=== PATIENT | male | born 1950 | race Caucasian/White ===

== ENCOUNTER 2018-01-11 17:40 | Emergency (ER) | payer MEDICARE ==
[~2018-01-11] VITALS: Ht 175.3 cm; Wt 87.3 kg
[2018-01-11] MEDS ORDERED: LISINOPRIL10 M1 PO (18:16)
[2018-01-11 18:22] LABS: HEMATOCRIT 48.6 % (39.0-50.0); HEMOGLOBIN 16.6 g/dl (14.0-18.0); IMMATURE GRANULOCYTES 0.4 % (0.0-1.0); MEAN CELL VOLUME 95.7 fL CALC (80.0-100.0); MEAN CORPUSCULAR HGB 32.7 pG CALC (26.0-32.0); MEAN CORPUSCULAR HGB CONC 34.2 g/L CALC (32.0-36.0); RED BLOOD COUNT 5.08 mill/uL (4.70-6.10); RED CELL DISTRI WIDTH 14.2 % (11.5-15.5)
[2018-01-11 18:54] LABS: ANION GAP 15 (6-22 (CALC)); BUN 11 mg/dL (8-23); BUN/CREATININE RATIO 12 (12-20 (CALC)); CARBON DIOXIDE 27 mmol/l (22-30); CHLORIDE 104 mmol/l (95-108); CREATININE 0.9 mg/dL (0.7-1.3); GFR > 60 ML/MIN (>=60 (CALC)); GFR FOR AFR.AMER. > 60 ML/MIN (>=60 (CALC)); SODIUM 142 mmol/l (137-146)
[2018-01-11 20:04] VITALS: BP 162/86
== END 2018-01-11 20:03 | disposition home or self-care (01) ==
LOC: ED 17:40
PROVIDERS: Family Medicine
DX: I10 Essential (primary) hypertension (principal); E78.00 Pure hypercholesterolemia, unspecified; J44.9 Chronic obstructive pulmonary disease, unspecified; I71.4 Abdominal aortic aneurysm, without rupture; F17.210 Nicotine dependence, cigarettes, uncomplicated

== ENCOUNTER 2020-02-10 19:12 | Emergency (ER) | payer BC, MEDICARE ==
[~2020-02-10] VITALS: Ht 175.3 cm; Wt 79.1 kg
[~2020-02-10 19:12] MED LIST: LISINOPRIL10 M1 PO
[2020-02-10] MEDS ORDERED: ATENOLOL25 MG PO (20:29)
[2020-02-10] MEDS ORDERED: SIMVASTATIN40 MG PO (20:30)
[2020-02-10 20:50] VITALS: BP 169/97
== END 2020-02-10 20:50 | disposition home or self-care (01) | DRG 605 ==
LOC: ED 19:12
PROC: 0HQMXZZ Repair Right Foot Skin, External Approach (ICD-10-PCS; principal; 2020-02-10)
DX: S91.311A Laceration without foreign body, right foot, initial encounter (principal); I10 Essential (primary) hypertension; J44.9 Chronic obstructive pulmonary disease, unspecified; F17.210 Nicotine dependence, cigarettes, uncomplicated; W45.8XXA Other foreign body or object entering through skin, initial encounter

== ENCOUNTER 2022-08-17 18:41 | Observation (INO) | payer BC, MEDICARE ==
[2022-08-17] VITALS (8 sets, daily range): BP systolic 118–170; BP diastolic 52–76
[~2022-08-17] VITALS: Ht 175.3 cm; Wt 115.3 kg
[~2022-08-17 18:41] MED LIST changes: +ATENOLOL25 MG PO; +SIMVASTATIN40 MG PO
[2022-08-17 19:10] LABS: BASO% 0.4 % (0-3); EOS% 2.8 % (0-8); HEMATOCRIT 44.1 % (39.0-50.0); HEMOGLOBIN 14.6 g/dl (14.0-18.0); IMMATURE GRANULOCYTES 0.8 % (0.0-5.0); LYMPH% 16.5 % (15-41); MEAN CELL VOLUME 91.3 fL CALC (80.0-100.0); MEAN CORPUSCULAR HGB 30.2 pG CALC (26.0-32.0); MEAN CORPUSCULAR HGB CONC 33.1 g/dL CAL (32.0-36.0); MONO% 5.9 % (2-13); NEUT# 5.22 thou/uL (1.82-7.42); NEUT% 73.6 % (42-76); RED BLOOD COUNT 4.83 mill/uL (4.70-6.10); RED CELL DISTRI WIDTH 16.9 % (11.5-15.5)
[2022-08-17 19:26] LABS: ALBUMIN 4.3 g/dL (3.2-5.0); ALKALINE PHOSPHATASE 57 u/l (38-126); ANION GAP 9 (6-22 (CALC)); BILIRUBIN, TOTAL 0.2 mg/dL (0.0-1.4); BUN 22 mg/dL (8-23); BUN/CREATININE RATIO 17 (12-20 (CALC)); CARBON DIOXIDE 32 mmol/l (22-30); CHLORIDE 104 mmol/l (95-108); CPK 49 u/l (52-200); CREATININE 1.3 mg/dL (0.7-1.3); ETHYL ALCOHOL 0 mg/dl (0-30); GFR FOR AFR.AMER. > 60 ML/MIN (>=60 (CALC)); GFR OTHER RACES 54 ML/MIN (>=60 (CALC)); MAGNESIUM 2.1 mg/dL (1.6-2.3); POTASSIUM 4.1 mmol/l (3.5-5.1); SGOT/AST 28 u/l (19-48); SODIUM 141 mmol/l (137-146)
[2022-08-17 19:37] LABS: MYOGLOBIN 39 ng/mL (0 - 121)
[2022-08-17 19:39] LABS: URINE BLOOD DIPSTICK NEGATIVE (NEGATIVE); URINE COLOR YELLOW; URINE GLUCOSE - DIPSTICK NEGATIVE (NEGATIVE); URINE KETONE TRACE mg/dL (NEGATIVE); URINE LEUK ESTERASE NEGATIVE (NEGATIVE); URINE PH 5.5 (4.5-8.0); URINE PROTEIN - DIPSTICK NEGATIVE (NEG-TRACE); URINE SPECIFIC GRAVITY >=1.030; URINE UROBILINOGEN - DIPSTICK 0.2 E.U./dL (0.2)
[2022-08-17 19:44] LABS: URINE BILIRUBIN - DIPSTICK SMALL (NEGATIVE)
[2022-08-17 19:45] LABS: URINE NITRITE - DIPSTICK NEGATIVE (Negative)
[2022-08-17] MEDS ORDERED: ASPIRIN81 MG PO (20:49)
[2022-08-17] MEDS ORDERED: LIPITOR20 M1 PO (20:49)
[2022-08-17] MEDS ORDERED: XARELTO10 MG PO (20:50)
[2022-08-18] VITALS: BP 119/70
[2022-08-18 03:56] VITALS: BP 112/60
[2022-08-18 04:00] VITALS: BP 112/60
[2022-08-18 05:27] LABS: BASO% 0.7 % (0-3); EOS% 5.8 % (0-8); HEMATOCRIT 39.8 % (39.0-50.0); LYMPH% 28.7 % (15-41); MEAN CELL VOLUME 93.4 fL CALC (80.0-100.0); MEAN CORPUSCULAR HGB 30.5 pG CALC (26.0-32.0); MEAN CORPUSCULAR HGB CONC 32.7 g/dL CAL (32.0-36.0); MONO% 6.5 % (2-13); NEUT# 3.2 thou/uL (1.82-7.42); NEUT% 58.3 % (42-76); RED BLOOD COUNT 4.26 mill/uL (4.70-6.10); RED CELL DISTRI WIDTH 17.1 % (11.5-15.5)
[2022-08-18 05:44] LABS: ALKALINE PHOSPHATASE 53 u/l (38-126); ANION GAP 7 (6-22 (CALC)); BUN 18 mg/dL (8-23); BUN/CREATININE RATIO 19 (12-20 (CALC)); CARBON DIOXIDE 27 mmol/l (22-30); CHLORIDE 109 mmol/l (95-108); CREATININE 0.9 mg/dL (0.7-1.3); GFR FOR AFR.AMER. > 60 ML/MIN (>=60 (CALC)); GFR OTHER RACES > 60 ML/MIN (>=60 (CALC)); MAGNESIUM 2.1 mg/dL (1.6-2.3); POTASSIUM 4.2 mmol/l (3.5-5.1); SGOT/AST 21 u/l (19-48); SODIUM 139 mmol/l (137-146); TOTAL PROTEIN 5.7 g/dL (6.3-8.2)
[2022-08-18 05:46] LABS: ALBUMIN 3.4 g/dL (3.2-5.0)
[2022-08-18 06:46] VITALS: BP 112/65
== END 2022-08-18 10:35 | disposition home or self-care (01) | DRG 312 ==
LOC: ED 18:41 → ED-I 20:15 → ED 20:28 → MS2 20:29 → ED 20:29 → MS2 20:29
PROVIDERS: Family Medicine; ADMIT Internal Medicine; ATTEND Internal Medicine
DX: R55 Syncope and collapse (principal); I10 Essential (primary) hypertension; E78.00 Pure hypercholesterolemia, unspecified; F17.200 Nicotine dependence, unspecified, uncomplicated; I73.9 Peripheral vascular disease, unspecified; Z95.828 Presence of other vascular implants and grafts; Z86.79 Personal history of other diseases of the circulatory system; Z85.818 Personal history of malignant neoplasm of other sites of lip, oral cavity, and pharynx; Z92.3 Personal history of irradiation; Z92.21 Personal history of antineoplastic chemotherapy; Z20.822 Contact with and (suspected) exposure to COVID-19
CPT/HCPCS: G0378

== ENCOUNTER 2024-09-20 07:21 | Day surgery (SDC) | payer BC, MEDICARE ==
[~2024-09-20 07:21] MED LIST changes: +ASPIRIN81 MG PO; +BAYER ASPIRIN E81 MG PO; +LIPITOR20 M1 PO; +XARELTO10 MG PO
[2024-09-20] MEDS ORDERED: LACTATED RINGER'S 1,000 ML IV ONE (07:24)
[2024-09-20] MEDS ORDERED: FAMOTIDINE 10MG/ML 2ML SDV IV ONE (07:24)
[2024-09-20 09:09] VITALS: BP 156/86
[2024-09-20] MEDS ORDERED: LIDOCAINE HCL 2% 2ML SDV IV ONE (14:06)
[2024-09-20] MEDS ORDERED: PROPOFOL 200 MG/20 ML VIAL IV ONE (14:06)
== END 2024-09-20 09:18 | disposition home or self-care (01) | DRG 951 ==
LOC: ORM 07:21
PROVIDERS: ATTEND Surgery
PROC: 0DBL8ZX Excision of Transverse Colon, Via Natural or Artificial Opening Endoscopic, Diagnostic (ICD-10-PCS; principal; 2024-09-20)
DX: Z12.11 Encounter for screening for malignant neoplasm of colon (principal); D12.3 Benign neoplasm of transverse colon; K64.8 Other hemorrhoids; K57.30 Diverticulosis of large intestine without perforation or abscess without bleeding; E03.9 Hypothyroidism, unspecified; E78.5 Hyperlipidemia, unspecified; I70.219 Atherosclerosis of native arteries of extremities with intermittent claudication, unspecified extremity; J44.9 Chronic obstructive pulmonary disease, unspecified; I12.9 Hypertensive chronic kidney disease with stage 1 through stage 4 chronic kidney disease, or unspecified chronic kidney disease; N18.30 Chronic kidney disease, stage 3 unspecified; F17.200 Nicotine dependence, unspecified, uncomplicated; Z01.818 Encounter for other preprocedural examination